=== PATIENT | female | born 1990 ===

== ENCOUNTER 2024-02-29 15:29 | Emergency (ER) | payer OTHER, SELFPAY ==
--- NOTE | 2024-02-29 15:46 | ED.GENADULT ---
HPI - General Adult General Chief complaint: General Medical Stated complaint: Needs Methadone dose Time Seen by Provider: 02/29/24 16:18 Source: patient Mode of arrival: ambulatory Limitations: no limitations History of Present Illness HPI narrative: 33-year-old female with history of opiate use disorder presents to the ER for evaluation after she missed her methadone this morning. She states she last got her dose yesterday at the [facility] [place], 40 mg. She states her last drug use was on February 20. She denies any anxiety, restlessness, tremors, vomiting, diarrhea or goose flesh. complaint: Methadone dosing Relieving factors: none Exacerbating factors: none Associated symptoms: denies other symptoms Treatments prior to arrival: none Related Data Allergies Allergy/AdvReac Type Severity Reaction Status Date / Time Penicillins Allergy Hives Verified 02/29/24 15:48 Review of Systems Review of Systems: Yes all other systems are reviewed and are negative Physical Exam ED Vital Signs: Vital Signs - 24 hr 02/29/24 15:47 Temperature 96.8 F Pulse Rate 78 Respiratory Rate 18 Blood Pressure 122/51 L Pulse Oximetry 98 Oxygen Delivery Method Room Air BMI result Body Mass Index 48.1 Appearance: Alert. Oriented X3. No acute distress. HEENT: normal inspection CVS: Normal heart rate and rhythm. Pulses normal. Respiratory: No respiratory distress. Skin: Skin warm and dry. Normal skin color. Normal skin turgor. No rashes. Extremities: normal inspection, no track [place] Neuro: Oriented X 3. Nonfocal Course Course Course Narrative: This is a Rapid Medical Examination (RME) in triage, full HPI, ROS, assessment and plan per primary provider in the Main ED. 33 year old female presents today for missed methadone dose this morning. Reports last dose yesterday at [facility] in [place] and was 40 mg. States she is fairly new to the process and was unable to contact them, therefore came here. Medical Decision Making Medical Decision Making MDM Narrative: 33-year-old female with history of opioid use disorder presents to the ER for methadone dosing. Patient last got her dose yesterday at the clinic but it was closed this morning with time she went there today. Last use was February 20. She reports her last dose of methadone was yesterday, 40 mg. This has been verified with her clinic. Patient was given 40 mg of methadone in the ER today. She is stable for discharge. She will follow-up with her clinic tomorrow. Differential Diagnosis Differential Diagnoses: The differential diagnosis associated with the presentation includes Opioid use disorder, methadone maintenance, methadone abuse, opioid withdrawal External Record Review External record reviewed: Office record Prescription Management I considered prescription management with: Pain Medication Critical Care Time Critical Care Time Critical Care Time: No Discharge Plan Discharge Clinical Impression: Opioid use disorder Patient Disposition: Home, Self-Care Instructions: Opioid Use Disorder (ED) Additional Instructions: you were given 40 methadone today 02/29/24 follow up with your clinic tomorrow
[2024-02-29 15:47] VITALS: BP 122/51; PULSE 78; RESP 18; TEMP 36; O2SAT 98; BMI 48.1
[2024-02-29] MEDS: methADONE HCl 20 MG/2 ML ORAL.CONC 40 MG PO (16:21)
--- NOTE | 2024-02-29 16:24 | PC.NURSE ---
methadone verified by MAREN Burks @ [facility] 40mg, last dose 02/28/24 @ 0818 medicated per JAN.
[2024-02-29 16:43] VITALS: BP 137/77; PULSE 72; RESP 18; TEMP 36.1; O2SAT 98
== END 2024-02-29 16:43 | disposition home or self-care (01) ==
PROVIDERS: Emergency Provider Emergency Medicine Emergency Medical Services
DX: F11.10 Opioid abuse, uncomplicated (principal); Z71.51 Drug abuse counseling and surveillance of drug abuser
CPT/HCPCS: 99282; 99283

== ENCOUNTER 2024-03-01 15:20 | Emergency (ER) | payer OTHER, SELFPAY ==
[2024-03-01 16:07] VITALS: BP 116/41; PULSE 64; RESP 20; TEMP 36.6; O2SAT 97; BMI 48.1
--- NOTE | 2024-03-01 16:25 | ED.GENADULT ---
HPI - General Adult General Chief complaint: Recheck/Abnormal Lab/Rx Stated complaint: missed dose of methadone History of Present Illness HPI narrative: Left withtout complete of treatment. Related Data Allergies Allergy/AdvReac Type Severity Reaction Status Date / Time Penicillins Allergy Hives Verified 03/01/24 16:09 [facility], [facility] Social History Social History Advance Directives: No Advance Directives Information Provided: No Physical Exam ED Vital Signs: Vital Signs - 24 hr 03/01/24 16:07 Temperature 98 F Pulse Rate 64 Respiratory Rate 20 Blood Pressure 116/41 L Pulse Oximetry 97 Oxygen Delivery Method Room Air BMI result Body Mass Index 48.1 Course Course Course Narrative: RME: 33-year-old female presents to ED requesting methadone dose 40 mg. Patient was seen here yesterday and received methadone. While waiting in the waiting room patient changed her mind and nO longer wants to wait for methadone dose and left without completing treatment. Discharge Plan Discharge Clinical Impression: Encounter for medication refill Patient Disposition: Left W/O Completing Treatment Interventions: LWBS Worksheet Last Done: 03/01/24 17:00 Discharge Date/Time: 03/01/24 17:01
== END 2024-03-01 17:01 | disposition left against medical advice (07) ==
PROVIDERS: Emergency Provider Emergency Medicine
DX: Z53.21 Procedure and treatment not carried out due to patient leaving prior to being seen by health care provider (principal); Z76.0 Encounter for issue of repeat prescription
CPT/HCPCS: 99281

== ENCOUNTER 2024-03-05 13:14 | Emergency (ER) | payer OTHER, SELFPAY ==
[2024-03-05 13:29] VITALS: BP 116/52; PULSE 68; RESP 18; TEMP 35.8; O2SAT 99; BMI 48.1
--- NOTE | 2024-03-05 13:30 | ED.GENADULT ---
HPI - General Adult General Chief complaint: General Medical Stated complaint: Medical clearance Time Seen by Provider: 03/05/24 13:30 Source: patient Mode of arrival: ambulatory Limitations: no limitations History of Present Illness HPI narrative: 33 yo female with history of opioid use disorder on methadone 40 mg per day, anxiety/depression, DANIEL on CPAP presents to the ER for medical clearance so she can be accepted [facility]. They told her to come to the ER for medical clearance. She is on zoloft, clonidine, trazodone, MVI, and ibuprofen for meds. She has a psychiatric provider. No PCP. She is compliant with her CPAP. She reports last drug use was 02/20. No history of intravenous use. MD complaint: medical clearance Relieving factors: none Exacerbating factors: none Associated symptoms: denies other symptoms Treatments prior to arrival: none Related Data Allergies Allergy/AdvReac Type Severity Reaction Status Date / Time Penicillins Allergy Hives Verified 03/05/24 13:31 Review of Systems Review of Systems: Yes all other systems are reviewed and are negative [facility] Social History Social History Advance Directives: No Physical Exam ED Vital Signs: Vital Signs - 24 hr 03/05/24 13:29 03/05/24 14:38 Temperature 96.5 F L 97.9 F Pulse Rate 68 68 Respiratory Rate 18 18 Blood Pressure 116/52 L 120/54 L Pulse Oximetry 99 99 Oxygen Delivery Method Room Air Room Air BMI result Body Mass Index 48.1 Appearance: Alert. Oriented X3. No acute distress. Head: normocephalic, atraumatic. Eyes: Pupils equal, round and reactive to light. ENT: Pharynx normal. No tonsillar swelling or exudate. Neck: Normal inspection. Neck supple. CVS: Normal heart rate and rhythm. Pulses normal. Respiratory: No respiratory distress. Breath sounds normal. Abdomen: Obese, Soft and nontender. +BS x4 Skin: Skin warm and dry. Normal skin color. Normal skin turgor. No rashes. Extremities: No lower extremity edema. No joint swelling. Neuro/psych: Oriented X 3. Grossly normal, nonfocal Normal speech and cognition. Medical Decision Making Medical Decision Making MDM Narrative: 33 yo female with history of opioid use disorder on methadone 40 mg per day, anxiety/depression, DANIEL on CPAP presents to the ER for medical clearance so she can be accepted into [facility] housing. VSS. Exam is unremarkable Labs are unremarkable She is medically cleared to go to [facility] program Differential Diagnosis Differential Diagnoses: The differential diagnosis associated with the presentation includes ongoing opioid use, opioid use disorder, anxiety, polysubstance abuse Lab Data MDM Lab Attestation statement: I reviewed the patient's lab results. no leukocytosis, no significant metabolic derangement 03/05/24 13:51 03/05/24 13:51 Labs: Lab Results 03/05/24 03/05/24 Range/Units 13:51 13:59 WBC 7.5 (4.8-10.8) X10*3/uL RBC 4.41 (4.20-5.50) X10*6/uL Hgb 12.8 (12.0-16.0) g/dl Hct 38.3 (37.0-47.0) % MCV 86.8 (80.0-98.0) fL MCH 29.0 (27.0-33.0) pg MCHC 33.4 (31.0-35.0) g/dl RDW 13.3 (11.0-16.0) % Plt Count 239 (160-400) X10*3/uL MPV 10.3 (9.4-12.3) fL Immature Gran % (Auto) 0.5 H (0.0-0.4) % Neut % (Auto) 62.7 (45-73) % Lymph % (Auto) 28.0 (20-40) % [place] % (Auto) 8.8 (2-11) % Eos % (Auto) 0.0 (0-4) % Baso % (Auto) 0.0 (0-2) % Lymph # (Auto) 2.1 (1.2-4.9) X10*3/uL [place] # (Auto) 0.7 (0.1-1.2) X10*3/uL Eos # (Auto) 0.0 (0.0-0.4) X10*3/uL Baso # (Auto) 0.0 (0.0-0.2) X10*3/uL Abs Immat Gran (auto) 0.04 H (0.00-0.03) X10*3/uL Absolute Neuts (auto) 4.7 (2.0-8.3) x10*3/uL Absolute Nucleated RBC 0.000 (0.0-0.012) X10*3/uL Nucleated RBC % (auto) 0.0 (0.0-0.2) /100WBC Sodium 139 (135-145) mmol/L Potassium 4.3 (3.3-5.1) mmol/L Chloride 104 (96-108) mmol/L Carbon Dioxide 31 H (22-29) mmol/L Anion Gap 8 L (12-20) BUN 10 (9-16) mg/dL Creatinine 0.71 (0.5-1.4) mg/dL Estim Creat Clear Calc 148.8 Estimated GFR > 60 Random Glucose 97 (60-115) mg/dL Calcium 8.9 (8.4-10.2) mg/dL Magnesium 2.0 (1.6-2.6) mg/dL Total Bilirubin 0.2 (0.0-1.0) mg/dL Direct Bilirubin < 0.2 (0.0-0.5) mg/dL AST 15 (5-31) U/L ALT 14 (0-31) U/L Alkaline Phosphatase 53 (39-117) U/L Total Protein 6.7 (6.5-8.0) g/dL Albumin 3.7 (3.5-5.0) g/dL Urine Color Yellow Urine Appearance Cloudy Urine pH 5.5 (5.0-9.0) Ur Specific [place] 1.015 (1.005-1.025) Urine Protein Negative (Neg-Trace) mg/dL Urine Glucose (UA) Negative (Negative) mg/dL Urine Ketones Negative (Negative) mg/dL Urine Blood Negative (Negative) Urine Nitrite Negative (Negative) Ur Leukocyte Esterase Small (1+) H (Negative) Urine RBC 0-2 (0-2) /HPF Urine WBC 11-20 H (0-5) /HPF Ur Squamous Epith Cells >20 (0-2) /HPF Urine Bacteria 2+ (None Seen) Hyaline Casts 0-2 (0-2) /LPF Urine Test NEGATIVE (NEGATIVE) Urine Opiates Screen POSITIVE H (Not Detect) Urine Fentanyl Screen POSITIVE H (Not Detect) Ur Barbiturates Screen Not Detected (Not Detect) Ur Phencyclidine Scrn Not Detected (Not Detect) Ur Amphetamines Screen Not Detected (Not Detect) U Benzodiazepines Scrn Not Detected (Not Detect) Urine Cocaine Screen POSITIVE H (Not Detect) U Marijuana (THC) Screen Not Detected (Not Detect) Ethyl Alcohol < 10 mg/dL Tests considered The following testing was considered but not selected: considered EKG to assess for QTc prolongation Chronic Conditions Patient?s care impacted by: Other (DANIEL, obesity, anxiety) Social Determinants Patient?s care significantly limited by Social Determinants of Health including: Problems related to primary support group and Other Social Determinant of Health Critical Care Time Critical Care Time Critical Care Time: No Discharge Plan Discharge Clinical Impression: Opioid use disorder, Anxiety, DANIEL (obstructive sleep apnea) Depression Qualifiers: Depression Type: unspecified Qualified Code(s): F32.A - Depression, unspecified Patient Disposition: Home, Self-Care Instructions: Opioid Use Disorder (ED) Additional Instructions: Your lab workup today is unremarkable. You are medically cleared to go to [facility] Continue all of your prescribed medications Continue your CPAP Follow up with a primary care doctor If you develop new or worsening symptoms call 911 or come back to the ER for further evaluation. [place] [facility] [facility] [place] [facility] [place] Group] Interventions: ED Discharge Assessment Last Done: 03/05/24 14:38 Discharge Date/Time: 03/05/24 14:39 Print Language: Sinhala
[2024-03-05 13:56] LABS: MANUAL DIFF FLAG NO
[2024-03-05 14:01] LABS: Hematocrit 38.3 % (37.0-47.0); Hemoglobin 12.8 g/dl (12.0-16.0); Imm Gran Abs Auto 0.04 X10*3/uL (0.00-0.03); Imm Gran Pct Auto 0.5 % (0.0-0.4); Lymphocytes Absolute Auto 2.1 X10*3/uL (1.2-4.9); Mean Corpuscular HGB Conc 33.4 g/dl (31.0-35.0); Mean Corpuscular Volume 86.8 fL (80.0-98.0); Mean Platelet Volume 10.3 fL (9.4-12.3); Monocytes Absolute Auto 0.7 X10*3/uL (0.1-1.2); Monocytes Percent Auto 8.8 % (2-11); Neutrophils Absolute Auto 4.7 x10*3/uL (2.0-8.3); Neutrophils Percent Auto 62.7 % (45-73); Platelet Count 239 X10*3/uL (160-400); Red Blood Count 4.41 X10*6/uL (4.20-5.50); Red Cell Distribution Width 13.3 % (11.0-16.0); White Blood Count 7.5 X10*3/uL (4.8-10.8)
[2024-03-05 14:12] LABS: Appearance Urine Cloudy; Color Urine Yellow; Glucose Urine UA Negative (Negative); Leukocyte Esterase Urine Small (1+) (Negative); Nitrite Urine Negative (Negative); PH 5.5 (5.0-9.0); Specific Gravity - Urine 1.015 (1.005-1.025); UMIC TRIGGER UACC YES; UPreg QC Valid YES; Urine Blood Negative (Negative); Urine Ketones Negative (Negative); Urine Pregnancy NEGATIVE (NEGATIVE); Urine Protein Negative (Neg-Trace)
--- NOTE | 2024-03-05 14:15 | PC.NURSE ---
patient a&ox3, vss, pt labs drawn, urine obtained, pt awaiting results for medical clearance
[2024-03-05 14:21] LABS: Bacteria Urine 2+ (None Seen); Hyaline Casts Urine 0-2 /LPF (0-2); RBC Urine 0-2 /HPF (0-2); Squamous Epithelial Cell Urine >20 /HPF (0-2); UACC Culture Trigger YES
[2024-03-05 14:21] LABS: Alanine Aminotransferase 14 U/L (0-31); Albumin Level 3.7 g/dL (3.5-5.0); Alkaline Phosphatase 53 U/L (39-117); Anion Gap 8 (12-20); Aspartate Amino Transferase 15 U/L (5-31); Bilirubin Direct < 0.2 mg/dL (0.0-0.5); Bilirubin Total 0.2 mg/dL (0.0-1.0); Blood Urea Nitrogen 10 mg/dL (9-16); Calcium 8.9 mg/dL (8.4-10.2); Carbon Dioxide 31 mmol/L (22-29); Chloride 104 mmol/L (96-108); Creatinine Clr Calc Pharmacy 148.8; Estimated Glomerular Filt Rate > 60; Ethanol < 10 mg/dL; Glucose Random 97 mg/dL (60-115); Potassium 4.3 mmol/L (3.3-5.1); Sodium 139 mmol/L (135-145); Total Protein 6.7 g/dL (6.5-8.0)
[2024-03-05 14:31] LABS: Amphetamine Screen Urine Not Detected (Not Detect); Barbiturates, Urine Not Detected (Not Detect); Benzodiazepines Screen Urine Not Detected (Not Detect); Cannabinoid Screen Urine Not Detected (Not Detect); Cocaine Screen Urine POSITIVE (Not Detect); Fentanyl, urine POSITIVE (Not Detect); Opiate Screen Urine POSITIVE (Not Detect); Phencyclidine Screen Urine Not Detected (Not Detect)
[2024-03-05 14:38] VITALS: BP 120/54; PULSE 68; RESP 18; TEMP 36.6; O2SAT 99
== END 2024-03-05 14:39 | disposition home or self-care (01) ==
PROVIDERS: Physician Assistant; Emergency Provider Emergency Medicine
DX: F11.188 Opioid abuse with other opioid-induced disorder (principal); F41.1 Generalized anxiety disorder; F43.0 Acute stress reaction; G47.33 Obstructive sleep apnea (adult) (pediatric); Z79.899 Other long term (current) drug therapy
CPT/HCPCS: 36415; 80048; 80076; 80307; 81001; 81025; 83735; 85025; 87086; 99282; 99283